=== PATIENT | male | born 1945 | race Caucasian/White ===

== ENCOUNTER 2017-06-18 20:17 | Inpatient (IN) | payer OTHER ==
[~2017-06-18] VITALS: Ht 175.3 cm; Wt 87.9 kg
[2017-06-18] VITALS (7 sets, daily range): BP systolic 70–119; BP diastolic 52–74; PULSE 96–109; RESP 18; TEMP 97.4; O2SAT 97–98
--- NOTE | 2017-06-18 20:56 | PD ---
HPI Chief Complaint: Abnormal Results Time Seen by Provider: 20:37 Travel History International Travel<30 days: No Contact w/Intl Traveler<30days: No History of Present Illness HPI Patient is a 72-year-old male who presents the emergency room with his family for evaluation of hypotension. As per patient's , patient had an episode of dizziness this afternoon, patient's did take his blood pressure and noted it to be 77/44, repeat blood pressure was 85/49. Patient denied a syncopal episode, denied any chest pain or shortness of breath. Denies fall or trauma to the head. Patient initially refused to come to the emergency room for evaluation of his hypotension. Patient reports that he has not eaten or drinking anything all day as he was not hungry. Reports that he feels fine and doesn't want to be here in the ER. Patient denies dizziness at this time, denies any vision changes, denies any nausea or vomiting. Patient with no complaints. Patient does have history of hypertension, he did take his antihypertensives this morning. PFSH Past Medical History High Cholesterol: Yes Hypertension: Yes Past Surgical History Surgical History: No Previous Surgery Social History Alcohol Use: No Tobacco Use: No Allergies-Medications (Allergen,Severity, Reaction): Coded Allergies: No Known Allergies (Unverified , 06/18/17) Reported Meds & Prescriptions Reported Meds & Active Scripts Active Reported Lisinopril 20 Mg Tab 20 Mg PO DAILY Atorvastatin (Atorvastatin Calcium) 40 Mg Tab 40 Mg PO DAILY Review of Systems General / Constitutional: No: Fever Eyes: No: Visual changes HENT: No: Headaches Cardiovascular: No: Chest Pain or Discomfort Respiratory: No: Shortness of Breath Gastrointestinal: No: Abdominal Pain Genitourinary: No: Dysuria Musculoskeletal: No: Pain Skin: No Rash Neurologic: Positive: Dizziness, No: Weakness Psychiatric: No: Depression Endocrine: No: Polydipsia Hematologic/Lymphatic: No: Easy Bruising Physical Exam Narrative GENERAL: Moderate distress SKIN: Focused skin assessment warm/dry. HEAD: Atraumatic. Normocephalic. EYES: Pupils equal and round. No scleral icterus. No injection or drainage. ENT: No nasal bleeding or discharge. Mucous membranes pink and moist. NECK: Trachea midline. No JVD. CARDIOVASCULAR: Regular rate and rhythm. No murmur appreciated. RESPIRATORY: No accessory muscle use. Clear to auscultation. Breath sounds equal bilaterally. GASTROINTESTINAL: Abdomen soft, non-tender, nondistended. Hepatic and splenic margins not palpable. MUSCULOSKELETAL: No obvious deformities. No clubbing. No cyanosis. No edema. NEUROLOGICAL: Awake and alert. No obvious cranial nerve deficits. Motor grossly within normal limits. Normal speech. PSYCHIATRIC: Appropriate mood and affect; insight and judgment normal. Data Data Last Documented VS Vital Signs Date Time Temp Pulse Resp B/P (MAP) Pulse Ox O2 Delivery O2 Flow Rate FiO2 06/18/17 22:30 98 21 06/18/17 22:19 103 18 119/74 (89) Room Air 06/18/17 20:28 97.4 Orders Orders Sepsis Workup Initiated (06/18/17 ) Electrocardiogram (06/18/17 20:48) Complete Blood Count With Diff (06/18/17 20:48) Comprehensive Metabolic Panel (06/18/17 20:48) Prothrombin Time / Inr (Pt) (06/18/17 20:48) Act Partial Throm Time (Ptt) (06/18/17 20:48) Lactic Acid Sepsis Protocol (06/18/17 20:48) Magnesium (Mg) (06/18/17 20:48) Ckmb (Isoenzyme) Profile (06/18/17 20:48) Troponin I (06/18/17 20:48) Urinalysis - C+S If Indicated (06/18/17 20:48) Blood Culture (06/18/17 20:48) Blood Glucose (06/18/17 20:48) Ecg Monitoring (06/18/17 20:48) Iv Access Insert/Monitor (06/18/17 20:48) Oximetry (06/18/17 20:48) Oxygen Administration (06/18/17 20:48) Ct Brain W/O Iv Contrast(Rout) (06/18/17 20:48) Sodium Chlor 0.9% 1000 Ml Inj (Ns 1000 M (06/18/17 21:00) Sodium Chlor 0.9% 1000 Ml Inj (Ns 1000 M (06/18/17 21:00) CKMB (06/18/17 20:51) CKMB% (06/18/17 20:51) Arterial Blood Gas (Abg) (06/18/17 ) Sepsis Workup Initiated (06/18/17 ) Vancomycin Inj (Vancomycin Inj) (06/18/17 21:44) Piperacil-Tazo 4.5 Gm Premix (Zosyn 4.5 (06/18/17 21:44) Chest, Single Ap (06/18/17 21:49) Sodium Chlor 0.9% 1000 Ml Inj (Ns 1000 M (06/18/17 22:00) Drug Screen, Random Urine (06/18/17 22:05) Salicylates (Aspirin) (06/18/17 22:05) Alcohol (Ethanol) (06/18/17 20:51) Cath For Specimen (06/18/17 22:30) Admit Order (Ed Use Only) (06/18/17 22:33) Labs Laboratory Tests Test 06/18/17 20:51 06/18/17 21:48 06/18/17 22:34 White Blood Count 9.1 TH/MM3 Red Blood Count 4.27 MIL/MM3 Hemoglobin 14.2 GM/DL Hematocrit 42.5 % Mean Corpuscular Volume 99.4 FL Mean Corpuscular Hemoglobin 33.2 PG Mean Corpuscular Hemoglobin Concent 33.4 % Red Cell Distribution Width 14.6 % Platelet Count 179 TH/MM3 Mean Platelet Volume 7.5 FL Neutrophils (%) (Auto) 85.6 % Lymphocytes (%) (Auto) 9.5 % Monocytes (%) (Auto) 3.9 % Eosinophils (%) (Auto) 0.2 % Basophils (%) (Auto) 0.8 % Neutrophils # (Auto) 7.7 TH/MM3 Lymphocytes # (Auto) 0.9 TH/MM3 Monocytes # (Auto) 0.4 TH/MM3 Eosinophils # (Auto) 0.0 TH/MM3 Basophils # (Auto) 0.1 TH/MM3 CBC Comment DIFF FINAL Differential Comment Prothrombin Time 10.4 SEC Prothromb Time International Ratio 1.0 RATIO Activated Partial Thromboplast Time 24.0 SEC Blood Urea Nitrogen 18 MG/DL Creatinine 1.70 MG/DL Random Glucose 74 MG/DL Total Protein 8.3 GM/DL Albumin 4.3 GM/DL Calcium Level 9.4 MG/DL Magnesium Level 1.5 MG/DL Alkaline Phosphatase 98 U/L Aspartate Amino Transf (AST/SGOT) 225 U/L Alanine Aminotransferase (ALT/SGPT) 138 U/L Total Bilirubin 0.7 MG/DL Sodium Level 135 MEQ/L Potassium Level 4.9 MEQ/L Chloride Level 96 MEQ/L Carbon Dioxide Level 19.9 MEQ/L Anion Gap 19 MEQ/L Estimat Glomerular Filtration Rate 40 ML/MIN Lactic Acid Level 8.2 mmol/L Total Creatine Kinase 103 U/L Creatine Kinase MB 1.1 NG/ML Troponin I LESS THAN 0.02 NG/ML Salicylates Level 2.1 MG/DL Ethyl Alcohol Level 156 MG/DL Blood Gas Puncture Site LT RADIAL Blood Gas Patient Temperature 98.6 Blood Gas HCO3 15 mmol/L Blood Gas Base Excess -10.1 mmol/L Blood Gas Oxygen Saturation 94 % Arterial Blood pH 7.30 Arterial Blood Partial Pressure CO2 31 mmHG Arterial Blood Partial Pressure O2 91 mmHG Arterial Blood Oxygen Content 16.6 Vol % Arterial Blood Carboxyhemoglobin 1.0 % Arterial Blood Methemoglobin 1.5 % Blood Gas Hemoglobin 12.6 G/DL Blood Gas Inspired Oxygen 21 % Urine Color YELLOW Urine Turbidity CLEAR Urine pH 5.5 Urine Specific [place] 1.020 Urine Protein NEG mg/dL Urine Glucose (UA) NEG mg/dL Urine Ketones 15 mg/dL Urine Occult Blood NEG Urine Nitrite NEG Urine Bilirubin NEG Urine Urobilinogen 0.2 MG/DL Urine Leukocyte Esterase NEG Urine RBC 0-2 /hpf Urine WBC 0-2 /hpf Urine Squamous Epithelial Cells 0-5 /hpf Urine Bacteria NONE /hpf Urine Hyaline Casts 3-5 /lpf Microscopic Urinalysis Comment CULT NOT INDICATED Urine Opiates Screen NEG Urine Barbiturates Screen NEG Urine Amphetamines Screen NEG Urine Benzodiazepines Screen NEG Urine Cocaine Screen NEG Urine Cannabinoids Screen NEG MDM Medical Decision Making Medical Screen Exam Complete: Yes Emergency Medical Condition: Yes Medical Record Reviewed: Yes Interpretation(s) EKG at 97BPM, qt/qtc: 347/402, no acute st or t wave changes Vital Signs Date Time Temp Pulse Resp B/P (MAP) Pulse Ox O2 Delivery O2 Flow Rate FiO2 06/18/17 20:28 97.4 109 18 93/55 (63) 47 Differential Diagnosis Arrhythmia, ACS, intracranial hemorrhage, CVA, sepsis Narrative Course Patient is a 72-year-old male who presents the emergency room tachycardic and hypotensive, patient with no complaints at this time. Patient's family report that patient complained of dizziness this afternoon and has been hypotensive all afternoon, reports that he has not been eating or drinking today as "I didn' t feel like it." Patient with no objective complaints at this time. During the course of the patients emergency department visit, the patients history, examination, and differential diagnosis were reviewed with the patient. The patient was placed on a cardiac specialist with oximetry and frequent blood pressure monitoring. The patient had an IV access obtained and blood work sent for analysis. The patient was initially provided IV fluids. The patients laboratory studies were reviewed and remarkable for: CBC & BMP Diagram 06/18/17 20:51 Total Protein 8.3 H, Albumin 4.3, Calcium Level 9.4, Magnesium Level 1.5, Alkaline Phosphatase 98, Aspartate Amino Transf (AST/SGOT) 225 H, Alanine Aminotransferase (ALT/SGPT) 138 H, Total Bilirubin 0.7 Radiology studies were reviewed and remarkable for Last Impressions Head CT 06/18/172047 Signed Impressions: Service Date/Time: Sunday, June 18, 2017 20:56 - CONCLUSION: 1. Senescent changes with mild to moderate small vessel ischemic white matter demyelination. 2. Right maxillary sinus fluid consistent with sinusitis. 3. No acute intracranial abnormality. Reuben Delgado MD Patient's AST/ALT are elevated, patient's son reports that Dr. Mann has been following with this as patient did drink a little too much alcohol in the past, he has since quit drinking and denies drinking today Patient with the anion gap metabolic acidosis, this could be secondary to his lactic acidosis. Lactate is 8.2, patient has been pancultured, 30 cc/kg IV fluids were ordered. Patient has been given Zosyn as well as vancomycin. Patient's BUN/CR is elevated - most likely due to dehydration as patient has not been drinking fluids today Patient will be admitted to the hospital for further workup. Patient reports that he feels fine at this time, patient with no complaints. Case reviewed with Dr. Martin who accepts pt to service. Dr. Martin request CTA to rule out PE be ordered, he will follow up with CTA results. Critical Care Narrative Aggregate critical care time was 30 minutes. Time to perform other separately billable procedures was not included in the critical care time. My time did not include minutes spent treating any other patients simultaneously or on activities that did not directly contribute to the patient's treatment. The services I provided to this patient were to treat and/or prevent clinically significant deterioration that could result in: , decompensation, deterioration I provided critical care services requiring my management, as noted below: Chart data review, documentation time, medication orders and management, vital sign assessments/reviewing monitor data, ordering and reviewing lab tests, ordering and interpreting/reviewing x-rays and diagnostic studies, care of the patient and discussion of the patient with the admitting physicians. Diagnosis Primary Impression: Sepsis Additional Impressions: Lactic acid acidosis Dehydration Transaminitis Admitting Information Admitting Physician Requests: Admit Bernadette Ivey DO Jun 18, 2017 20:56
[2017-06-18] MEDS ORDERED: SODIUM CHLOR 0.9% 1000 ML INJ 1,000 ML IV ONE ×3 (21:00→22:00)
--- NOTE | 2017-06-18 21:08 | RADRPT ---
EXAM DATE/TIME: 06/18/2017 20:56 [facility] COMPARISON: No previous studies available for comparison. INDICATIONS : Dizziness. RADIATION DOSE: 56.55 CTDIvol (mGy) MEDICAL HISTORY : Hypertension. SURGICAL HISTORY : None. ENCOUNTER: Initial ACUITY: 1 day PAIN SCALE: 0/10 LOCATION: cranial TECHNIQUE: Multiple contiguous axial images were obtained of the head. Using automated exposure control and adj ustment of the mA and/or kV according to patient size, radiation dose was kept as low as reasonably a chievable to obtain optimal diagnostic quality images. DICOM format image data is available electro nically for review and comparison. FINDINGS: CEREBRUM: Moderate diffuse cerebral volume loss. Mild to moderate periventricular white matter hypodensities. T he ventricles are normal for degree of atrophy. No evidence of midline shift, mass lesion, hemorrhag e or acute infarction. No extra-axial fluid collections are seen. POSTERIOR FOSSA: The cerebellum and brainstem are intact. The 4th ventricle is midline. The cerebellopontine angle i s unremarkable. EXTRACRANIAL: The visualized portion of the orbits is intact. Fluid is noted in the right maxillary sinus SKULL: The calvaria is intact. No evidence of skull fracture. CONCLUSION: 1. Senescent changes with mild to moderate small vessel ischemic white matter demyelination. 2. Right maxillary sinus fluid consistent with sinusitis. 3. No acute intracranial abnormality. Reuben Delgado MD on June 18, 2017 at 21:03 Board Certified Radiologist. This report was verified electronically.
[2017-06-18 21:22] LABS: AUTOMATED NEUTROPHIL # 7.7 TH/MM3 (1.8-7.7); BASOPHIL # 0.1 TH/MM3 (0-0.2); BASOPHIL % 0.8 % (0.0-2.0); EOSINOPHIL % 0.2 % (0.0-4.0); HEMATOCRIT 42.5 % (39.0-51.0); HEMOGLOBIN 14.2 GM/DL (13.0-17.0); LYMPH % 9.5 % (9.0-44.0); LYMPHOCYTE # 0.9 TH/MM3 (1.0-4.8); MEAN CELL VOLUME 99.4 FL (80.0-100.0); MEAN CORPUSCULAR HEMOGLOBIN 33.2 PG (27.0-34.0); MEAN CORPUSCULAR HGB CONC 33.4 % (32.0-36.0); MEAN PLATELET VOLUME 7.5 FL (7.0-11.0); MONO % 3.9 % (0.0-8.0); MONOCYTE # 0.4 TH/MM3 (0-0.9); NEUT % 85.6 % (16.0-70.0); PLATELET COUNT 179 TH/MM3 (150-450); RED BLOOD COUNT 4.27 MIL/MM3 (4.50-5.90); RED CELL DISTRIBUTION WIDTH 14.6 % (11.6-17.2); WHITE BLOOD COUNT 9.1 TH/MM3 (4.0-11.0)
[2017-06-18 21:31] LABS: CHLORIDE 96 MEQ/L (98-107); SODIUM (NA) 135 MEQ/L (136-145)
[2017-06-18 21:34] LABS: ALBUMIN 4.3 GM/DL (3.4-5.0); BICARBONATE 19.9 MEQ/L (21.0-32.0); CALCIUM 9.4 MG/DL (8.5-10.1); GLUCOSE,RANDOM 74 MG/DL (74-106); MAGNESIUM 1.5 MG/DL (1.5-2.5)
[2017-06-18 21:35] LABS: BLOOD UREA NITROGEN 18 MG/DL (7-18)
[2017-06-18 21:36] LABS: PROTHROMBIN TIME - PATIENT 10.4 SEC (9.8-11.6)
[2017-06-18] MEDS ORDERED: ATOR40TA16 PO (21:36)
[2017-06-18] MEDS ORDERED: LISI-515 PO (21:36)
[2017-06-18 21:37] LABS: ALT (GPT) 138 U/L (12-78)
[2017-06-18 21:38] LABS: AST (GOT) 225 U/L (15-37); GLOMERULAR FILTRATION RATE 40 ML/MIN (>89)
[2017-06-18 21:39] LABS: TOTAL BILIRUBIN ADULT 0.7 MG/DL (0.2-1.0); TOTAL PROTEIN 8.3 GM/DL (6.4-8.2)
[2017-06-18 21:40] LABS: ALKALINE PHOSPHATASE 98 U/L (45-117)
[2017-06-18 21:43] LABS: TROPONIN I LESS THAN 0.02 NG/ML (0.02-0.05)
[2017-06-18 21:44] LABS: LACTIC ACID SEPSIS PROTOCOL 8.2 mmol/L (0.4-2.0)
[2017-06-18] MEDS ORDERED: PIPERACIL-TAZO 4.5 GM PREMIX 100 ML IV STA (21:44)
[2017-06-18] MEDS ORDERED: VANCOMYCIN INJ 1,000 MG in SODIUM CHLOR 0.9% 250 ML INJ 250 ML IV STA (21:44)
--- NOTE | 2017-06-18 22:11 | RADRPT ---
EXAM DATE/TIME: 06/18/2017 21:53 [facility] COMPARISON: No previous studies available for comparison. INDICATIONS : Dizziness. MEDICAL HISTORY : Hypertension. SURGICAL HISTORY : None. ENCOUNTER: Initial ACUITY: 1 day PAIN SCORE: 0/10 LOCATION: Bilateral chest FINDINGS: A single view of the chest demonstrates the lungs to be symmetrically aerated without evidence of mas s, infiltrate or effusion. The cardiomediastinal contours are unremarkable. Osseous structures are intact. CONCLUSION: 1. No acute cardiopulmonary disease. Reuben Delgado MD on June 18, 2017 at 22:08 Board Certified Radiologist. This report was verified electronically.
[2017-06-18 22:43] LABS: BILIRUBIN, URINE NEG (NEG); BLOOD, URINE NEG (NEG); GLUCOSE,URINE NEG (NEG); KETONE, URINE 15 mg/dL (NEG); NITRITE,URINE NEG (NEG); PH, URINE 5.5 (5.0-8.5); URINE COLOR YELLOW (YELLW/STRAW); URINE LEUKOCYTE ESTERASE NEG (NEG)
[2017-06-18] MEDS ORDERED: CHLORHEXIDINE GLUCONATE 2 % 1 PACK (2 CLOTHS) TOP PRN (22:45)
[2017-06-18] MEDS ORDERED: RESP: ALBUTEROL 2.5 MG/IPRATROPIUM 0.5 MG NEB (PRN) INH (22:45)
[2017-06-18] MEDS ORDERED: NURSING INFORMATION XX SCH (22:45)
[2017-06-18] MEDS ORDERED: SODIUM CHLORIDE 0.9% FLUSH 10 ML FLUSH IV FLUSH PRN (22:45)
[2017-06-18 22:47] LABS: RBC, URINE 0-2 /hpf (0-3); WBC, URINE 0-2 /hpf (0-5)
[2017-06-18 22:48] LABS: SQUAMOUS EPITHELIAL CELL URINE 0-5 /hpf (0-5)
[2017-06-19] VITALS (15 sets, daily range): BP systolic 116–149; BP diastolic 65–83; PULSE 71–118; RESP 16–20; TEMP 96.9–99.3; O2SAT 90–99
[2017-06-19] MEDS ORDERED: DIATRIZOATE MEGLUM/DIATRIZOATE SOD 9 ML CUP ONE (00:11)
[2017-06-19] MEDS ORDERED: ONDANSETRON HCL 4 MG/2 ML VIAL IV ONE (00:30)
[2017-06-19] MEDS ORDERED: ONDANSETRON HCL 4 MG/2 ML VIAL IV PUSH PRN (00:45)
[2017-06-19] MEDS ORDERED: IODIXANOL 320 MG/ML 10 ML VIAL (for Rad CT) IVCONTRAST ONE (02:17)
--- NOTE | 2017-06-19 02:35 | RADRPT ---
EXAM DATE/TIME: 06/19/2017 01:52 [facility] COMPARISON: No previous studies available for comparison. INDICATIONS : Evaluate for embolism. IV CONTRAST: 50 cc Visipaque (iodixanol) IV ; Cumulative dose for multiple exams. RADIATION DOSE: 18.98 CTDIvol (mGy) MEDICAL HISTORY : Hypertension. SURGICAL HISTORY : None. ENCOUNTER: Initial ACUITY: 1 day PAIN SCALE: 0/10 LOCATION: chest TECHNIQUE: Volumetric scanning of the chest was performed using a pulmonary embolism protocol MIP images were re constructed. Using automated exposure control and adjustment of the mA and/or kV according to patien t size, radiation dose was kept as low as reasonably achievable to obtain optimal diagnostic quality images. DICOM format image data is available electronically for review and comparison. Follow-up recommendations for detected pulmonary nodules are based at a minimum on nodule size and pa tient risk factors according to Fleischner Society Guidelines. FINDINGS: PULMONARY ARTERIES: Poor contrast bolus as most of the contrast within the aorta. No large central pulmonary emboli, stern annette. LUNGS: There is no consolidation or pneumothorax . No concerning pulmonary nodule is visualized. PLEURAE: There is no pleural thickening or pleural effusion. MEDIASTINUM: There is good visualization of the great vessels of the middle mediastinum. No evidence of mediastin al or hilar adenopathy/mass. MUSCULOSKELETAL: Within normal limits for patient age. MISCELLANEOUS: The visualized upper abdominal organs demonstrate no acute abnormality. Diffusely diminished attenuat ion characteristic of fatty infiltration. Small hiatal hernia CONCLUSION: 1. Limited opacification of the pulmonary arterie. The contrast bolus is predominantly in the aorta. No large central pulmonary emboli. 2. Lungs are clear. 3. Small hiatal hernia. Hepatic fatty infiltration. Viet Singer MD on June 19, 2017 at 2:31 Board Certified Radiologist. This report was verified electronically.
--- NOTE | 2017-06-19 02:48 | RADRPT ---
EXAM DATE/TIME: 06/19/2017 01:52 [facility] COMPARISON: No previous studies available for comparison. INDICATIONS : Elevated liver function test. IV CONTRAST: 50 cc Visipaque (iodixanol) IV ; Cumulative dose for multiple exams. ORAL CONTRAST: Prescribed oral contrast ingested. RADIATION DOSE: 20.14 CTDIvol (mGy) MEDICAL HISTORY : Hypertension. SURGICAL HISTORY : None. ENCOUNTER: Initial ACUITY: 1 day PAIN SCALE: 0/10 LOCATION: abdomen and pelvis TECHNIQUE: Volumetric scanning of the abdomen and pelvis was performed. Using automated exposure control and ad justment of the mA and/or kV according to patient size, radiation dose was kept as low as reasonably achievable to obtain optimal diagnostic quality images. DICOM format image data is available electro nically for review and comparison. FINDINGS: LOWER LUNGS: The visualized lower lungs are clear. Small hiatal hernia. LIVER: Homogeneous, decreased density without lesion. There is no dilation of the biliary tree. No calcifi ed gallstones. SPLEEN: Normal size without lesion. PANCREAS: Within normal limits. KIDNEYS: 1.9 cm cortical nodule laterally along the inferior aspect of the left kidney has Hounsfield measurem ents of 30 and cannot be classified as a simple cyst. Kidneys are otherwise radiographically normal. ADRENAL GLANDS: Within normal limits. VASCULAR: There is no aortic aneurysm. BOWEL/MESENTERY: Some diverticular disease in the sigmoid colon without diverticulitis. ABDOMINAL WALL: Within normal limits. RETROPERITONEUM: There is no lymphadenopathy. BLADDER: No wall thickening or mass. REPRODUCTIVE: Within normal limits. INGUINAL: There is no lymphadenopathy or hernia. MUSCULOSKELETAL: Pars fractures at L5. Otherwise intact. CONCLUSION: 1. Diffuse hepatic fatty infiltration. Small hiatal hernia. 2. 1.9 cm nodule in the inferior lateral pole of left kidney cannot be characterized as a simple cyst . This could still represent hemorrhagic or proteinaceous cyst. Ultrasound could be performed for fur ther characterization on a nonemergent basis. 3. Disease of the sigmoid without diverticulitis. Viet Singer MD on June 19, 2017 at 2:38 Board Certified Radiologist. This report was verified electronically.
[2017-06-19] MEDS: CHLORHEXIDINE GLUCONATE 2 % 1 PACK (2 CLOTHS) TOP SCH (04:00)
[2017-06-19] MEDS: PIPERACIL-TAZO 4.5 GM PREMIX 100 ML IV SCH ×2 (04:00→05:19)
[2017-06-19 05:34] LABS: AUTOMATED NEUTROPHIL # 4.7 TH/MM3 (1.8-7.7); BASOPHIL # 0.3 TH/MM3 (0-0.2); BASOPHIL % 4.2 % (0.0-2.0); EOSINOPHIL % 0.2 % (0.0-4.0); HEMOGLOBIN 11.6 GM/DL (13.0-17.0); LYMPHOCYTE # 0.9 TH/MM3 (1.0-4.8); MEAN CELL VOLUME 98.7 FL (80.0-100.0); MEAN CORPUSCULAR HEMOGLOBIN 32.5 PG (27.0-34.0); MEAN PLATELET VOLUME 7.1 FL (7.0-11.0); MONO % 5.8 % (0.0-8.0); MONOCYTE # 0.4 TH/MM3 (0-0.9); NEUT % 74.8 % (16.0-70.0); PLATELET COUNT 140 TH/MM3 (150-450); RED BLOOD COUNT 3.55 MIL/MM3 (4.50-5.90); RED CELL DISTRIBUTION WIDTH 14.5 % (11.6-17.2); WHITE BLOOD COUNT 6.3 TH/MM3 (4.0-11.0)
[2017-06-19 05:42] LABS: CHLORIDE 102 MEQ/L (98-107); SODIUM (NA) 135 MEQ/L (136-145)
[2017-06-19 05:54] LABS: ALBUMIN 3.1 GM/DL (3.4-5.0); ALKALINE PHOSPHATASE 67 U/L (45-117); ALT (GPT) 91 U/L (12-78); AST (GOT) 120 U/L (15-37); BICARBONATE 22.2 MEQ/L (21.0-32.0); BLOOD UREA NITROGEN 17 MG/DL (7-18); CALCIUM 7.5 MG/DL (8.5-10.1); GLOMERULAR FILTRATION RATE 66 ML/MIN (>89); GLUCOSE,RANDOM 96 MG/DL (74-106); TOTAL BILIRUBIN ADULT 0.7 MG/DL (0.2-1.0); TOTAL PROTEIN 6.1 GM/DL (6.4-8.2)
--- NOTE | 2017-06-19 06:33 | RADRPT ---
EXAM DATE/TIME: 06/19/2017 05:59 [facility] COMPARISON: CHEST SINGLE AP, June 18, 2017, 21:53. INDICATIONS : Shortness of breath, possible pulmonary disease. MEDICAL HISTORY : Hypertension. SURGICAL HISTORY : None. ENCOUNTER: Subsequent ACUITY: 1 day PAIN SCORE: Non-responsive. LOCATION: Bilateral chest FINDINGS: A single view of the chest demonstrates the lungs to be symmetrically aerated without evidence of mas s, infiltrate or effusion. The cardiomediastinal contours are unremarkable. Osseous structures are intact. CONCLUSION: No acute cardiopulmonary process. No change from prior. Viet Singer MD on June 19, 2017 at 6:30 Board Certified Radiologist. This report was verified electronically.
--- NOTE | 2017-06-19 06:52 | HHI.HP ---
[facility] Critical Care Medicine Primary Care Physician Pepe Mann MD, PhD Admission Diagnosis Lactic acidosis, sepsis Diagnosis: Chief Complaint: fatigue Travel History International Travel<30 Days: No Contact w/Intl Traveler <30 Da: No Traveled to Known Affected Are: No History of Present Illness This is a 72yM with history of HTN and HLD who presented with fatigue. he states he felt weak and then fell, no LOC, did not hit his head. does endorse only eating a piece of turkey gonzalez and cheese all day yesterday. has not had much to drink either. denies any fever, chills, chest pain, sob, cough, sick contacts, abd pain, n/v/c/d, or any other symptoms. has been in his usual state of health. does endorse drinking 1 beer and 1 scotch daily, but he denies having anything to drink yesterday at all. In the ER, he was hypotensive, tachycardic and received 3L crystalloid ivf. lab evidence concerning for Cr 1.7 , lactate 8, AST/ALT mildly elevated, but with normal wbc count. afebrile. etoh level was elevated at 156 despite patient subjective history of denying etoh. urinalysis + for ketones. I discussed the case with his son who is the head of MRI at this institution, and he states that his father has had at least 1 other episode of heavy drinking with severe intoxication recently, and he was decreasing his amount of drinking. Critical care medicine was consulted to evaluate his shock state and multi-organ system dysfunction Review of Systems Constitutional: DENIES: Diaphoretic episodes, Fatigue, Fever, Weight loss, Chills, Dizziness, Night Sweats Endocrine: DENIES: Heat/cold intolerance, Polyuria Eyes: DENIES: Blurred vision, Photosensitivity Respiratory: DENIES: Cough, Wheezing, Hemoptysis, Sputum production, Shortness of breath Cardiovascular: DENIES: Chest pain, Palpitations, Syncope, Dyspnea on Exertion , Lower Extremity Edema, Orthopnea Gastrointestinal: DENIES: Abdominal pain, Bloody stools, Constipation, Diarrhea , Nausea, Vomiting Genitourinary: DENIES: Dysuria Musculoskeletal: DENIES: Back pain, Neck pain Neurologic: DENIES: Abnormal gait, Headache, Localized weakness, Paresthesias, Seizures, Speech Problems, Tremor, Poor Balance Psychiatric: DENIES: Anxiety, Confusion, Depression Past Family Social History Allergies: Coded Allergies: No Known Allergies (Unverified , 06/18/17) Past Medical History hypertension hyperlipidemia last time he was at the hospital for an acute illness was 1965. Past Surgical History none. Reported Medications Lisinopril 20 Mg Tab 20 Mg PO DAILY Atorvastatin (Atorvastatin Calcium) 40 Mg Tab 40 Mg PO DAILY Active Ordered Medications See MAR Family History reviewed and found to be noncontributory to his acute illness Social History remote prior smoker for a few years in college. endorses drinking 1 beer and 1 scotch per day. denies other drugs. Physical Exam Vital Signs Vital Signs Date Time Temp Pulse Resp B/P (MAP) Pulse Ox O2 Delivery O2 Flow Rate FiO2 06/19/17 06:02 97 18 125/71 (89) 94 Room Air 06/19/17 05:39 95 18 94 Room Air 06/19/17 05:26 99.3 98 18 132/78 (96) 93 Room Air 06/19/17 04:19 92 16 149/75 (99) 95 Nasal Cannula 2.00 06/19/17 03:09 92 18 147/79 (101) 99 Nasal Cannula 2.00 06/19/17 01:00 118 18 118/71 (87) 95 Nasal Cannula 2.00 06/19/17 00:03 18 95 Nasal Cannula 2.00 06/19/17 00:01 95 Nasal Cannula 2.00 06/19/17 00:00 98 18 144/65 (91) 90 Room Air 06/18/17 22:30 98 21 06/18/17 22:19 103 18 119/74 (89) 98 Room Air 06/18/17 21:22 98 Room Air 06/18/17 21:22 98 Room Air 06/18/17 20:50 18 98 Room Air 06/18/17 20:47 96 18 99/55 (70) 98 Room Air 06/18/17 20:45 96 18 70/52 (58) 97 Room Air 06/18/17 20:44 102 18 78/55 (63) 97 Room Air 06/18/17 20:28 97.4 109 18 93/55 (68) 98 Physical Exam gen: elderly male, sitting in bed, no acute distress heent: nc. at. perrl. mucous membranes are moist after fluid resuscitation. neck: no jvd. trachea midline. chest: unlabored. equal chest rise. room air. cv: normal rate, regular rhythm. sinus. abd: soft, nontender, nondistended. no guarding. no hepatomegaly palpated. extr: skin turgor still poor, but extremities are now warm and well perfused. distal pulses 2+. no clubbing or cyanosis. neuro: RASS -1. slow to answer questions. follows commands x 4. CN 2-12 grossly intact. no focal deficits. Laboratory Laboratory Tests Test 06/18/17 20:51 06/18/17 21:48 06/18/17 22:34 06/18/17 23:32 White Blood Count 9.1 Red Blood Count 4.27 Hemoglobin 14.2 Hematocrit 42.5 Mean Corpuscular Volume 99.4 Mean Corpuscular Hemoglobin 33.2 Mean Corpuscular Hemoglobin Concent 33.4 Red Cell Distribution Width 14.6 Platelet Count 179 Mean Platelet Volume 7.5 Neutrophils (%) (Auto) 85.6 Lymphocytes (%) (Auto) 9.5 Monocytes (%) (Auto) 3.9 Eosinophils (%) (Auto) 0.2 Basophils (%) (Auto) 0.8 Neutrophils # (Auto) 7.7 Lymphocytes # (Auto) 0.9 Monocytes # (Auto) 0.4 Eosinophils # (Auto) 0.0 Basophils # (Auto) 0.1 CBC Comment DIFF FINAL Differential Comment Prothrombin Time 10.4 Prothromb Time International Ratio 1.0 Activated Partial Thromboplast Time 24.0 Blood Urea Nitrogen 18 Creatinine 1.70 Random Glucose 74 Total Protein 8.3 Albumin 4.3 Calcium Level 9.4 Magnesium Level 1.5 Alkaline Phosphatase 98 Aspartate Amino Transf (AST/SGOT) 225 Alanine Aminotransferase (ALT/SGPT) 138 Total Bilirubin 0.7 Sodium Level 135 Potassium Level 4.9 Chloride Level 96 Carbon Dioxide Level 19.9 Anion Gap 19 Estimat Glomerular Filtration Rate 40 Lactic Acid Level 8.2 6.3 Total Creatine Kinase 103 Creatine Kinase MB 1.1 Troponin I LESS THAN 0.02 Salicylates Level 2.1 Ethyl Alcohol Level 156 Blood Gas Puncture Site LT RADIAL Blood Gas Patient Temperature 98.6 Blood Gas HCO3 15 Blood Gas Base Excess -10.1 Blood Gas Oxygen Saturation 94 Arterial Blood pH 7.30 Arterial Blood Partial Pressure CO2 31 Arterial Blood Partial Pressure O2 91 Arterial Blood Oxygen Content 16.6 Arterial Blood Carboxyhemoglobin 1.0 Arterial Blood Methemoglobin 1.5 Blood Gas Hemoglobin 12.6 Blood Gas Inspired Oxygen 21 Urine Color YELLOW Urine Turbidity CLEAR Urine pH 5.5 Urine Specific Welling 1.020 Urine Protein NEG Urine Glucose (UA) NEG Urine Ketones 15 Urine Occult Blood NEG Urine Nitrite NEG Urine Bilirubin NEG Urine Urobilinogen 0.2 Urine Leukocyte Esterase NEG Urine RBC 0-2 Urine WBC 0-2 Urine Squamous Epithelial Cells 0-5 Urine Bacteria NONE Urine Hyaline Casts 3-5 Microscopic Urinalysis Comment CULT NOT INDICATED Urine Opiates Screen NEG Urine Barbiturates Screen NEG Urine Amphetamines Screen NEG Urine Benzodiazepines Screen NEG Urine Cocaine Screen NEG Urine Cannabinoids Screen NEG Test 06/19/17 05:23 White Blood Count 6.3 Red Blood Count 3.55 Hemoglobin 11.6 Hematocrit 35.0 Mean Corpuscular Volume 98.7 Mean Corpuscular Hemoglobin 32.5 Mean Corpuscular Hemoglobin Concent 33.0 Red Cell Distribution Width 14.5 Platelet Count 140 Mean Platelet Volume 7.1 Neutrophils (%) (Auto) 74.8 Lymphocytes (%) (Auto) 15.0 Monocytes (%) (Auto) 5.8 Eosinophils (%) (Auto) 0.2 Basophils (%) (Auto) 4.2 Neutrophils # (Auto) 4.7 Lymphocytes # (Auto) 0.9 Monocytes # (Auto) 0.4 Eosinophils # (Auto) 0.0 Basophils # (Auto) 0.3 CBC Comment DIFF FINAL Differential Comment Blood Urea Nitrogen 17 Creatinine 1.10 Random Glucose 96 Total Protein 6.1 Albumin 3.1 Calcium Level 7.5 Alkaline Phosphatase 67 Aspartate Amino Transf (AST/SGOT) 120 Alanine Aminotransferase (ALT/SGPT) 91 Total Bilirubin 0.7 Sodium Level 135 Potassium Level 4.1 Chloride Level 102 Carbon Dioxide Level 22.2 Anion Gap 11 Estimat Glomerular Filtration Rate 66 Date/Time Source Procedure Growth Status 06/18/17 20:56 Blood Peripheral Aerobic Blood Culture Pending Received 06/18/17 20:56 Blood Peripheral Anaerobic Blood Culture Pending Received Result Diagram: 06/19/17 0523 06/19/[address] Angiography 06/19/17 0001 Signed Impressions: Service Date/Time: Monday, June 19, 2017 01:52 - CONCLUSION: 1. Limited opacification of the pulmonary arterie. The contrast bolus is predominantly in the aorta. No large central pulmonary emboli. 2. Lungs are clear. 3. Small hiatal hernia. Hepatic fatty infiltration. Viet Singer MD Abdomen/Pelvis CT 06/19/17 0001 Signed Impressions: Service Date/Time: Monday, June 19, 2017 01:52 - CONCLUSION: 1. Diffuse hepatic fatty infiltration. Small hiatal hernia. 2. 1.9 cm nodule in the inferior lateral pole of left kidney cannot be characterized as a simple cyst. This could still represent hemorrhagic or proteinaceous cyst. Ultrasound could be performed for further characterization on a nonemergent basis. 3. Disease of the sigmoid without diverticulitis. Viet Singer MD Chest X-Ray [id number] Signed Impressions: Service Date/Time: Sunday, June 18, 2017 21:53 - CONCLUSION: 1. No acute cardiopulmonary disease. Reuben Delgado MD Head CT [id number] Signed Impressions: Service Date/Time: Sunday, June 18, 2017 20:56 - CONCLUSION: 1. Senescent changes with mild to moderate small vessel ischemic white matter demyelination. 2. Right maxillary sinus fluid consistent with sinusitis. 3. No acute intracranial abnormality. Reuben Delgado MD Septic Shock Reassessment Septic shock perfusion: reassessment completed Caprini VTE Risk Assessment Caprini VTE Risk Assessment: Mod/High Risk (score >= 2) Caprini Risk Assessment Model Point Value = 1 Point Value = 2 Point Value = 3 Point Value = 5 Age 41-60 Minor surgery BMI > 25 kg/m2 Swollen legs Varicose veins or History of unexplained or recurrent spontaneous Oral contraceptives or hormone replacement Sepsis (< 1 month) Serious lung disease, including pneumonia (< 1 month) Abnormal pulmonary function Acute myocardial infarction Congestive heart failure (< 1 month) History of inflammatory bowel disease Medical patient at bed rest Age 61-74 Arthroscopic surgery Major open surgery (> 45 min) Laparoscopic surgery (> 45 min) Malignancy Confined to bed (> 72 hours) Immobilizing plaster cast Central venous access Age >= 75 History of VTE Family history of VTE Factor V Leiden Prothrombin [id number] Lupus anticoagulant Anticardiolipin antibodies Elevated serum homocysteine Heparin-induced thrombocytopenia Other congenital or acquired thrombophilia Stroke (< 1 month) Elective arthroplasty Hip, pelvis, or leg fracture Acute spinal cord injury (< 1 month) Prophylaxis Regimen Total Risk Factor Score Risk Level Prophylaxis Regimen 0-1 Low Early ambulation 2 Moderate Order ONE of the following: *Sequential Compression Device (SCD) *Heparin 5000 units SQ BID 3-4 Higher Order ONE of the following medications: *Heparin 5000 units SQ TID *Enoxaparin/Lovenox 40 mg SQ daily (WT < 150 kg, CrCl > 30 mL/min) *Enoxaparin/Lovenox 30 mg SQ daily (WT < 150 kg, CrCl > 10-29 mL/min) *Enoxaparin/Lovenox 30 mg SQ BID (WT < 150 kg, CrCl > 30 mL/min) AND/OR *Sequential Compression Device (SCD) 5 or more Highest Order ONE of the following medications: *Heparin 5000 units SQ TID (Preferred with Epidurals) *Enoxaparin/Lovenox 40 mg SQ daily (WT < 150 kg, CrCl > 30 mL/min) *Enoxaparin/Lovenox 30 mg SQ daily (WT < 150 kg, CrCl > 10-29 mL/min) *Enoxaparin/Lovenox 30 mg SQ BID (WT < 150 kg, CrCl > 30 mL/min) AND *Sequential Compression Device (SCD) Assessment and Plan Assessment and Plan Assessment: 72yM with severe dehydration and alcoholic ketoacidosis with associated acute kidney injury and hypovolemic shock with severely elevated lactate. Clinically improving. long discussion with son today that he will need additional outpatient help for alcohol abuse. Per son, this is the second time he has been severely intoxicated. Will trend lactates and fluid hydrate. will complete liver work-up. Per son, has had liver ultrasound within the last month , so we will not repeat. will get renal ultrasound to better evaluate cyst on left kidney. Admit to floor level care. consult hospitalists to assume care. Highly complex with multiorgan system dysfunction that is improving but still persistent. Toxic Encephalopathy- resolving. Alcohol intoxication Alcohol abuse Severe intravascular volume depletion Hypovolemic shock- resolving Severe dehydration Alcoholic Ketoacidosis Lactic Acidosis Acute kidney injury left renal cyst Plan: - LR mivf at 100cc/hr - strict i/o's - hepatitis panel - check ammonia - check thiamine level and treat presumptively with iv thiamine and mvi - watch for etoh withdraw - trend lactates - renal ultrasound to better evaluate left renal cyst. - no need to obtain liver ultrasound given recent one within last month as outpatient. - no clinical concern for cardiogenic source: will cancel 2d echo. - admit to floor. consult hospitalist group to assume care. Camacho Ann MD Jun 19, 2017 06:52
[2017-06-19] MEDS: LACTATED RINGER'S 1000 ML INJ 1,000 ML IV SCH ×2 (07:04→19:17)
[2017-06-19] MEDS ORDERED: MULTIVITAMIN INJ 10 ML, THIAMINE INJ 100 MG, FOLIC ACID INJ 1 MG in SODIUM CHLOR 0.45% ... IV ONE (08:00)
[2017-06-19 09:29] LABS: ACETAMINOPHEN LESS THAN 2.0 MCG/ML (10.0-30.0)
--- NOTE | 2017-06-19 09:35 | RADRPT ---
EXAM DATE/TIME: 06/19/2017 07:46 [facility] COMPARISON: CT ABDOMEN & PELVIS W CONTRAST, June 19, 2017, 1:52. INDICATIONS : Increased BUN/Creatinine. Abnormal CT. MEDICAL HISTORY : Hypercholesterolemia. Hypertension. SURGICAL HISTORY : Eye surgery. ENCOUNTER: Initial ACUITY: 1 day PAIN SCORE: 0/10 LOCATION: Bilateral flank MEASUREMENTS: RIGHT KIDNEY: 10.4 x 4.6 x 5.1 cm LEFT KIDNEY: 10.6 x 6.4 x 5.4 cm FINDINGS: RIGHT KIDNEY: Renal cortex is normal in thickness and echotexture. No hydronephrosis, stone, or mass. LEFT KIDNEY: Examination was performed to characterize a low density bilobed exophytic lesion arising from the lat eral lower pole of the left kidney on recent CT. There is an oval smooth margin non-shadowing hypoec hoic lesion which does demonstrate some through transmission exophytic from the lower pole measuring 3.3 x 1.7 x 2.8 cm, correlating with the CT finding postop there is some layering echogenic material within it suggesting debris. No flow seen by color Doppler. No evidence hydronephrosis. No additio nal renal lesions seen. BLADDER: Smooth margins. No filling defects. CONCLUSION: A 3 cm exophytic lesion arising from the lower pole of left kidney a recent CT scan has predominantly cystic characteristics on ultrasound. There is some internal layering debris. Recommend followup e xam in 6 months. Luis Mcleod MD on June 19, 2017 at 9:25 Board Certified Radiologist. This report was verified electronically.
[2017-06-19] MEDS: SODIUM CHLORIDE 0.9% FLUSH 10 ML FLUSH IV FLUSH SCH ×2 (09:50→21:21)
[2017-06-19] MEDS: MULTIVITAMIN TAB PO SCH (09:50)
[2017-06-19] MEDS: ENOXAPARIN SODIUM 40 MG/0.4 ML SYRINGE SQ SCH (12:58)
--- NOTE | 2017-06-19 17:20 | MB ---
cc: Tuyet Vasquez MD DATE: 06/19/2017 REQUESTING PHYSICIAN: Dr. Ayala REASON FOR CONSULTATION: Transfer of care. HISTORY OF PRESENT ILLNESS: Mr. Hawthorne is a 72-year-old gentleman who was brought to the emergency room yesterday by his family after having episodes of lightheadedness, hypotension and weakness. The history is obtained from the chart, the patient and his , who was in the room with him. Apparently, the patient's was gone for the weekend. He states he spent the weekend alone. On Monday before his came back, he says he was out in the yard spreading a Amdro in the afternoon. He said he was there for several hours. He did not drink a lot of water. He did come into the house and have a small glass afterwards of water. He does admit to perhaps sweating. His then got home later in the day. He went out to help her with the groceries and actually was feeling weak and had to sit down between 2 of the trips secondary to the weakness. She says that she left him alone in the kitchen and when she came back, she found him on the ground at that point in a sitting position. He denies any loss of consciousness, but he does not recall how he fell. She started giving him glasses of water and checked his blood pressure. His blood pressure was low at the time and by the third glass of water she just became concerned and brought him to the emergency room. In the emergency room, he was hypotensive with a fast heart rate and received volume resuscitation. Lab work that was done showed a creatinine of 1.7, lactic acid of 2.7, beta hydroxybutyrate of 2.95 and an ethyl alcohol level of 156. The patient was admitted by the hydrochloric acid operator and stabilized overnight. The working diagnosis has been alcoholic ketoacidosis with acute kidney injury and hypovolemia. The patient denies any actual extensive alcohol consumption, even though he does say that he drinks 1 beer and a scotch a day, if he only has 2 drinks a day, he will have 2 scotches. However, he denies having any alcohol on Monday on the night that he came to the hospital. He does admit, on a little bit of pressing, that he did drink on Monday; he had several drinks at that time. According to his , last year he had elevated liver enzymes and at that point he cut back on his drinking and has not been drinking as much. The patient continues to deny any alcohol consumption on Monday. PAST MEDICAL HISTORY: Significant for hypertension and hyperlipidemia. PAST SURGICAL HISTORY: He denies any surgeries. ALLERGIES: HE DENIES. MEDICATIONS: 1. Atorvastatin, 40 mg. 2. Lisinopril, 20 mg. SOCIAL HISTORY: Habits: He stated he does not smoke. He said that in college he smoked a pipe. In terms of alcohol, he only admits to 2 drinks a day as stated, either a scotch and a beer or 2 beers. Social: He is . He and his will have been for 49 years this month. He tells me he is originally from [place]. 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 REVIEW OF SYSTEMS: He denies any fevers or chills. He denies any recent illness. He does say that he has had some sinus problems and was using Flonase. He noticed that last week his eyes are beginning to get a little bit injected and a little bit watery. He has had no cough or shortness of breath. No chest pain, no palpitations, no abdominal pain, no diarrhea or constipation. He tells me he has been urinating well. His does feel that he has been a little bit more forgetful over the last 3 or 4 months. She is not able to tell if he is not quite listening to her. He also tells me that he has had a tremor on and off for a couple of years now which is worse when he is tired. PHYSICAL EXAMINATION: VITAL SIGNS: Temperature 98, pulse is 89, respirations 20, blood pressure is 145/77, pulse oximetry is 97%. GENERAL: He is lying in the bed when I came in to see him. He does not appear to be in acute distress, a little bit tense-appearing. HEENT: Normocephalic, atraumatic. EOM is intact. His eyes are a little bit watery. He does have clear moist oral mucosa. NECK: Supple. LUNGS: Clear to auscultation bilaterally. No rhonchi, rales or wheezes. HEART: Regular. He is not tachycardic. ABDOMEN: Good bowel sounds in all 4 quadrants. No rebound or guarding. EXTREMITIES: No clubbing or cyanosis. He has no edema. He has some superficial capillaries around his ankles. His feet feel a little bit cool to touch. He has a little bit of an intention tremor and a slight bit of cogwheeling on exam. LABORATORY DATA: The lab work that has been done today showed a white count of 6.3, hemoglobin 11.6, hematocrit of 35, platelet count of 140. Blood gas when he came in showed a bicarbonate of 15, base excess of -10, pH was 7.3, pCO2 was 31, pO2 was 91, carboxyhemoglobin was 1; this was on room air. Sodium is now 135 with a potassium of 4.1, BUN was 17 with a creatinine of 1.1. This is already an improvement in GFR from 40-66. His random glucose is 90. His lactic acid is already 2.7,;it was 8.2 when he came in. Magnesium was 1.5 when he came in. AST was 120 with an ALT of 91; it was 225 and 138 when he came in. Ammonia level was 19. CK was 103 with an MB of 1.1. Troponin was less than 0.02. IMAGING STUDIES: CT scan of the brain that was done showed mild to moderate small vessel ischemic white matter demyelination, right maxillary sinus consistent with sinusitis, otherwise no acute abnormality. Chest x-ray showed no acute cardiopulmonary disease. Renal ultrasound showed a 3 cm exophytic lesion arising from the lower pole of the left kidney with some internal layering debris. Recommendations are for a followup exam in 6 months. A CTA was done that showed limited opacification of the pulmonary arteries. No large central pulmonary emboli. Lungs were clear. His CT of the abdomen did show diffuse hepatic infiltration with a small hiatal hernia. ASSESSMENT AND PLAN: This is a 72-year-old gentleman presenting with hypotension and tachycardia, with alcoholic ketoacidosis and dehydration with acute kidney injury. At this point, he has responded very well to volume resuscitation. His numbers throughout the day have continued to improve. He has maintained his blood pressure. Despite the elevated alcohol level, he denies any high alcohol consumption on the day that this occurred. As he continues to improve, we will continue hold this discussion with him. He may benefit from some counseling through our Mental Health Department. Continue supportive care for now. Further recommendations as the case develops. Tuyet Vasquez MD CAS/YESSI , 04:37 PM , 05:18 PM
[2017-06-19] MEDS: PANTOPRAZOLE SOD 40 MG DELAYED RELEASE TAB PO SCH (19:16)
--- NOTE | 2017-06-19 21:00 | EKG ---
Date Performed: 06/18/2017 Time Performed: 21:27:09 PTAGE: 72 years EKG: Sinus rhythm LOW QRS VOLTAGE IN EXTREMITY LEADS BORDERLINE ECG NO PREVIOUS TRACING DOCTOR: Gurwinder Camacho Interpretating Date/Time 06/19/2017 20:59:46
[2017-06-20] VITALS (8 sets, daily range): BP systolic 125–148; BP diastolic 65–82; PULSE 65–156; RESP 17–20; TEMP 97.3–99.3; O2SAT 96–100
[2017-06-20] MEDS: THIAMINE INJ 100 MG in SODIUM CHLORIDE 0.9% INJ 100 ML IV SCH (01:35)
[2017-06-20] MEDS: CHLORHEXIDINE GLUCONATE 2 % 1 PACK (2 CLOTHS) TOP SCH (04:00)
[2017-06-20] MEDS: LACTATED RINGER'S 1000 ML INJ 1,000 ML IV SCH ×3 (05:52→23:24)
[2017-06-20 06:46] LABS: CHLORIDE 99 MEQ/L (98-107); SODIUM (NA) 135 MEQ/L (136-145)
[2017-06-20 06:49] LABS: ALBUMIN 2.9 GM/DL (3.4-5.0); BICARBONATE 25.6 MEQ/L (21.0-32.0); CALCIUM 7.7 MG/DL (8.5-10.1); GLUCOSE,RANDOM 93 MG/DL (74-106); MAGNESIUM 1.2 MG/DL (1.5-2.5)
[2017-06-20 06:50] LABS: BLOOD UREA NITROGEN 11 MG/DL (7-18)
[2017-06-20 06:52] LABS: ALT (GPT) 59 U/L (12-78); AST (GOT) 56 U/L (15-37)
[2017-06-20 06:53] LABS: CREATININE 0.86 MG/DL (0.60-1.30); GLOMERULAR FILTRATION RATE 88 ML/MIN (>89); PHOSPHORUS 1.7 MG/DL (2.5-4.9)
[2017-06-20 06:54] LABS: TOTAL BILIRUBIN ADULT 0.8 MG/DL (0.2-1.0); TOTAL PROTEIN 5.8 GM/DL (6.4-8.2)
[2017-06-20 06:55] LABS: ALKALINE PHOSPHATASE 58 U/L (45-117)
[2017-06-20] MEDS: MULTIVITAMIN TAB PO SCH (08:46)
[2017-06-20] MEDS: PANTOPRAZOLE SOD 40 MG DELAYED RELEASE TAB PO SCH (08:46)
[2017-06-20] MEDS: SODIUM CHLORIDE 0.9% FLUSH 10 ML FLUSH IV FLUSH SCH ×2 (08:46→19:47)
[2017-06-20] MEDS: ENOXAPARIN SODIUM 40 MG/0.4 ML SYRINGE SQ SCH (10:52)
[2017-06-20] MEDS: MAGNESIUM SULFATE 1 GM PREMIX 100 ML IV SCH ×2 (10:52→11:48)
--- NOTE | 2017-06-20 11:28 | HHI.PR ---
Subjective Remarks No complaints, eating well, having bowel movements, ambulated in hallway , transient elevation of HR to 150's , he denies palpitaions or further light headedness, continues to deny more then 2 drinks a day, does admit to 3-4 day prior Objective Vitals Vital Signs Date Time Temp Pulse Resp B/P (MAP) Pulse Ox O2 Delivery O2 Flow Rate FiO2 06/20/17 09:52 156 06/20/17 08:00 98.9 97 18 134/82 (99) 97 06/20/17 04:00 97.4 70 20 125/65 (85) 96 06/20/17 00:00 99.3 80 20 125/73 (90) 96 06/19/17 20:15 97 21 06/19/17 20:00 71 06/19/17 20:00 99.0 77 20 116/74 (88) 97 06/19/17 15:50 96.9 90 20 143/75 (97) 97 06/19/17 11:50 98.0 89 20 145/77 (99) 97 06/19/17 11:39 98 21 Result Diagram: 06/19/17 0523 06/20/17 0524 Other Results Laboratory Tests Test 06/18/17 20:51 06/18/17 21:48 06/18/17 22:34 06/18/17 23:32 Red Blood Count 4.27 MIL/MM3 (4.50-5.90) Neutrophils (%) (Auto) 85.6 % (16.0-70.0) Lymphocytes # (Auto) 0.9 TH/MM3 (1.0-4.8) Activated Partial Thromboplast Time 24.0 SEC (24.3-30.1) Creatinine 1.70 MG/DL (0.60-1.30) Total Protein 8.3 GM/DL (6.4-8.2) Aspartate Amino Transf (AST/SGOT) 225 U/L (15-37) Alanine Aminotransferase (ALT/SGPT) 138 U/L (12-78) Sodium Level 135 MEQ/L (136-145) Chloride Level 96 MEQ/L (98-107) Carbon Dioxide Level 19.9 MEQ/L (21.0-32.0) Anion Gap 19 MEQ/L (5-15) Estimat Glomerular Filtration Rate 40 ML/MIN (>89) Lactic Acid Level 8.2 mmol/L (0.4-2.0) 6.3 mmol/L (0.4-2.0) Troponin I LESS THAN 0.02 NG/ML Salicylates Level 2.1 MG/DL (2.8-20.0) Ethyl Alcohol Level 156 MG/DL (0-5) Blood Gas HCO3 15 mmol/L (22-26) Blood Gas Base Excess -10.1 mmol/L (-2-2) Arterial Blood pH 7.30 (7.380-7.420) Arterial Blood Partial Pressure CO2 31 mmHG (38-42) Urine Ketones 15 mg/dL (NEG) Urine Hyaline Casts 3-5 /lpf (RARE) Test 06/19/17 05:23 06/19/17 06:30 06/19/17 06:44 06/19/17 07:10 Red Blood Count 3.55 MIL/MM3 (4.50-5.90) Hemoglobin 11.6 GM/DL (13.0-17.0) Hematocrit 35.0 % (39.0-51.0) Platelet Count 140 TH/MM3 (150-450) Neutrophils (%) (Auto) 74.8 % (16.0-70.0) Basophils (%) (Auto) 4.2 % (0.0-2.0) Lymphocytes # (Auto) 0.9 TH/MM3 (1.0-4.8) Basophils # (Auto) 0.3 TH/MM3 (0-0.2) Total Protein 6.1 GM/DL (6.4-8.2) Albumin 3.1 GM/DL (3.4-5.0) Calcium Level 7.5 MG/DL (8.5-10.1) Aspartate Amino Transf (AST/SGOT) 120 U/L (15-37) Alanine Aminotransferase (ALT/SGPT) 91 U/L (12-78) Sodium Level 135 MEQ/L (136-145) Estimat Glomerular Filtration Rate 66 ML/MIN (>89) Lactic Acid Level 2.7 mmol/L (0.4-2.0) Acetaminophen Level LESS THAN 2.0 MCG/ML B-Hydroxybutyrate 2.95 MMOL/L (0.00-0.39) Test 06/19/17 10:50 06/19/17 13:05 06/20/17 05:24 Total Protein 5.8 GM/DL (6.4-8.2) Albumin 2.9 GM/DL (3.4-5.0) Calcium Level 7.7 MG/DL (8.5-10.1) Phosphorus Level 1.7 MG/DL (2.5-4.9) Magnesium Level 1.2 MG/DL (1.5-2.5) Aspartate Amino Transf (AST/SGOT) 56 U/L (15-37) Sodium Level 135 MEQ/L (136-145) Estimat Glomerular Filtration Rate 88 ML/MIN (>89) Imaging Last Impressions Chest X-Ray 06/19/17 0600 Signed Impressions: Service Date/Time: Monday, June 19, 2017 05:59 - CONCLUSION: No acute cardiopulmonary process. No change from prior. Viet Singer MD CT Angiography 06/19/17 0001 Signed Impressions: Service Date/Time: Monday, June 19, 2017 01:52 - CONCLUSION: 1. Limited opacification of the pulmonary arterie. The contrast bolus is predominantly in the aorta. No large central pulmonary emboli. 2. Lungs are clear. 3. Small hiatal hernia. Hepatic fatty infiltration. Viet Singer MD Abdomen/Pelvis CT 06/19/17 0001 Signed Impressions: Service Date/Time: Monday, June 19, 2017 01:52 - CONCLUSION: 1. Diffuse hepatic fatty infiltration. Small hiatal hernia. 2. 1.9 cm nodule in the inferior lateral pole of left kidney cannot be characterized as a simple cyst. This could still represent hemorrhagic or proteinaceous cyst. Ultrasound could be performed for further characterization on a nonemergent basis. 3. Disease of the sigmoid without diverticulitis. Viet Singer MD Renal Ultrasound 06/19/17 0000 Signed Impressions: Service Date/Time: Monday, June 19, 2017 07:46 - CONCLUSION: A 3 cm exophytic lesion arising from the lower pole of left kidney a recent CT scan has predominantly cystic characteristics on ultrasound. There is some internal layering debris. Recommend followup exam in 6 months. Luis Mcleod MD Head CT [id number] Signed Impressions: Service Date/Time: Sunday, June 18, 2017 20:56 - CONCLUSION: 1. Senescent changes with mild to moderate small vessel ischemic white matter demyelination. 2. Right maxillary sinus fluid consistent with sinusitis. 3. No acute intracranial abnormality. Reuben Delgado MD Objective Remarks sitting by bed NAD rt eye injected more then left Lungs clear heart rrr not tachycardic good bowel sounds no edema A/P Problem List: (1) Alcoholic ketoacidosis ICD Codes: E87.2 - Acidosis Plan: improved with hydration, replace electrolytes as necessary (2) Dehydration ICD Codes: E86.0 - Dehydration Status: Acute Plan: improved with volume replacement acute renal injury resolved with renal function back to base line (3) Transaminitis ICD Codes: R74.0 - Nonspecific elevation of levels of transaminase and lactic acid dehydrogenase [LDH] Status: Acute Plan: improving , discussed continued avoidance of alcohol (4) Alcohol use disorder ICD Codes: F10.99 - Alcohol use, unspecified with unspecified alcohol-induced disorder Status: Chronic Plan: he continues to deny excessive alcohol consumption as well as counseling , he states he will decrease his use to 1 beer a day. will continue to address Tuyet Vasquez MD June 20, 2017 11:28
[2017-06-20] MEDS: POTASSIUM PHOSPHATE/SODIUM PHOSPHATE 250 MG TAB PO SCH ×2 (13:05→21:50)
[2017-06-20] MEDS: ERYTHROMYCIN 0.5% OPTH OINT 3.5 GM TUBO EACH EYE SCH (23:23)
[2017-06-21] VITALS: BP 178/88; PULSE 84; RESP 20; TEMP 99.1; O2SAT 97
[2017-06-21] MEDS: THIAMINE INJ 100 MG in SODIUM CHLORIDE 0.9% INJ 100 ML IV SCH (01:45)
[2017-06-21] MEDS: CHLORHEXIDINE GLUCONATE 2 % 1 PACK (2 CLOTHS) TOP SCH (02:39)
[2017-06-21 04:00] VITALS: BP 173/93; PULSE 94; RESP 18; TEMP 98.5; O2SAT 97
[2017-06-21] MEDS: ERYTHROMYCIN 0.5% OPTH OINT 3.5 GM TUBO EACH EYE SCH (05:05)
[2017-06-21] MEDS: POTASSIUM PHOSPHATE/SODIUM PHOSPHATE 250 MG TAB PO SCH (05:05)
[2017-06-21 05:19] LABS: CHLORIDE 100 MEQ/L (98-107); SODIUM (NA) 137 MEQ/L (136-145)
[2017-06-21 05:22] LABS: CALCIUM 8.3 MG/DL (8.5-10.1)
[2017-06-21 05:23] LABS: BICARBONATE 28.5 MEQ/L (21.0-32.0); BLOOD UREA NITROGEN 8 MG/DL (7-18); GLUCOSE,RANDOM 88 MG/DL (74-106); MAGNESIUM 1.6 MG/DL (1.5-2.5)
[2017-06-21 05:26] LABS: ALT (GPT) 68 U/L (12-78); AST (GOT) 73 U/L (15-37); CREATININE 0.79 MG/DL (0.60-1.30); GLOMERULAR FILTRATION RATE 97 ML/MIN (>89); PHOSPHORUS 2.6 MG/DL (2.5-4.9)
[2017-06-21 05:28] LABS: TOTAL BILIRUBIN ADULT 0.7 MG/DL (0.2-1.0)
[2017-06-21 05:29] LABS: ALKALINE PHOSPHATASE 59 U/L (45-117)
[2017-06-21 07:30] VITALS: PULSE 135
[2017-06-21 08:00] VITALS: BP 147/78; PULSE 90; RESP 20; TEMP 97.1; O2SAT 95
[2017-06-21] MEDS: SODIUM CHLORIDE 0.9% FLUSH 10 ML FLUSH IV FLUSH SCH (08:44)
[2017-06-21] MEDS: MULTIVITAMIN TAB PO SCH (08:44)
[2017-06-21] MEDS: PANTOPRAZOLE SOD 40 MG DELAYED RELEASE TAB PO SCH (08:44)
[2017-06-21] MEDS ORDERED: ERYTHROMYCIN 0.5% OPTH OINT 3.5 GM TUBO EACH EYE SCH (09:00)
[2017-06-21] MEDS ORDERED: ATORVASTATIN 40 MG TAB PO SCH (09:00)
[2017-06-21] MEDS ORDERED: LISINOPRIL 20 MG TAB PO SCH (09:00)
[2017-06-21] MEDS: ENOXAPARIN SODIUM 40 MG/0.4 ML SYRINGE SQ SCH (11:18)
--- NOTE | 2017-06-21 11:49 | HHI.PR ---
Subjective Remarks Feels fine, no complaints, states he will no longer consume alcohol. states only time she has seen him intoxicated recently was when they put their dog down in [place]. She had never noticed his tremors but states sons commented they had noted some. Objective Vitals Vital Signs Date Time Temp Pulse Resp B/P (MAP) Pulse Ox O2 Delivery O2 Flow Rate FiO2 06/21/17 08:00 97.1 90 20 147/78 (101) 95 06/21/17 04:00 98.5 94 18 173/93 (119) 97 06/21/17 00:00 99.1 84 20 178/88 (118) 97 06/20/17 20:00 98.4 75 20 148/75 (99) 99 06/20/17 20:00 72 06/20/17 16:00 97.3 65 18 128/79 (95) 100 06/20/17 13:46 109 06/20/17 12:00 99.2 90 17 137/80 (99) 98 06/21/17 06/21/17 06/22/17 15:00 23:00 07:00 Intake Total 120 ml Balance 120 ml Intake Oral 120 ml Result Diagram: 06/19/17 0523 06/21/17 0430 Imaging Last Impressions Chest X-Ray 06/19/17 0600 Signed Impressions: Service Date/Time: Monday, June 19, 2017 05:59 - CONCLUSION: No acute cardiopulmonary process. No change from prior. Viet Singer MD CT Angiography 06/19/17 0001 Signed Impressions: Service Date/Time: Monday, June 19, 2017 01:52 - CONCLUSION: 1. Limited opacification of the pulmonary arterie. The contrast bolus is predominantly in the aorta. No large central pulmonary emboli. 2. Lungs are clear. 3. Small hiatal hernia. Hepatic fatty infiltration. Viet Singer MD Abdomen/Pelvis CT [id number] Signed Impressions: Service Date/Time: Monday, June 19, 2017 01:52 - CONCLUSION: 1. Diffuse hepatic fatty infiltration. Small hiatal hernia. 2. 1.9 cm nodule in the inferior lateral pole of left kidney cannot be characterized as a simple cyst. This could still represent hemorrhagic or proteinaceous cyst. Ultrasound could be performed for further characterization on a nonemergent basis. 3. Disease of the sigmoid without diverticulitis. Viet Singer MD Renal Ultrasound 06/19/17 0000 Signed Impressions: Service Date/Time: Monday, June 19, 2017 07:46 - CONCLUSION: A 3 cm exophytic lesion arising from the lower pole of left kidney a recent CT scan has predominantly cystic characteristics on ultrasound. There is some internal layering debris. Recommend followup exam in 6 months. Luis Mcleod MD Head CT [id number] Signed Impressions: Service Date/Time: Sunday, June 18, 2017 20:56 - CONCLUSION: 1. Senescent changes with mild to moderate small vessel ischemic white matter demyelination. 2. Right maxillary sinus fluid consistent with sinusitis. 3. No acute intracranial abnormality. Reuben Delgado MD Objective Remarks sitting by bed visitn with NAD rt eye injected more then left Lungs clear heart rrr not tachycardic good bowel sounds no edema A/P Problem List: (1) Alcoholic ketoacidosis ICD Codes: E87.2 - Acidosis Plan: improved with hydration, electrolytes replaced (2) Dehydration ICD Codes: E86.0 - Dehydration Status: Resolved Plan: improved with volume replacement acute renal injury resolved with renal function back to base line (3) Transaminitis ICD Codes: R74.0 - Nonspecific elevation of levels of transaminase and lactic acid dehydrogenase [LDH] Status: Chronic Plan: improving , discussed continued avoidance of alcohol (4) Alcohol use disorder ICD Codes: F10.99 - Alcohol use, unspecified with unspecified alcohol-induced disorder Status: Chronic Plan: he continues to deny excessive alcohol consumption as well as counseling , today he states he will stop drinking , discussed that sometimes can be a challenging process and there are resources to help him. he declined. Let him know his PCP was available at any time he needed help. Assessment and Plan Discharge home today Tuyet Vasquez MD June 21, 2017 11:49
[2017-06-21] MEDS ORDERED: THERTAB15 PO (11:56)
[2017-06-21] MEDS ORDERED: ERYTHROMYCIN 0.5% EACH EYE (11:56)
[2017-06-21] MEDS ORDERED: OPTH EACH EYE (11:56)
[2017-06-21 12:00] VITALS: BP 163/86; PULSE 99; RESP 19; TEMP 98.7; O2SAT 98
--- NOTE | 2017-06-21 12:08 | HHI.DS ---
Discharge Summary Admission Date Jun 18, 2017 at 22:35 Admitting Diagnosis Lactic acidosis, sepsis (1) Alcoholic ketoacidosis ICD Codes: E87.2 - Acidosis Status: Resolved (2) Dehydration Diagnosis: Secondary ICD Codes: E86.0 - Dehydration Status: Resolved (3) Transaminitis Diagnosis: Secondary ICD Codes: R74.0 - Nonspecific elevation of levels of transaminase and lactic acid dehydrogenase [LDH] Status: Chronic (4) Alcohol use disorder Diagnosis: Secondary ICD Codes: F10.99 - Alcohol use, unspecified with unspecified alcohol-induced disorder Status: Chronic Consultants Critical Care Dr Ayala Brief History Pt brought to the ER for lightheadedness and falls by his family. Was hypotensive, tachycardic and had lactic acidosis elevated etoh level and ketones. Was admitted by business solutions consultant for alcoholic ketoacidosis and agressively received volume replacement overnight with electrolyte and clinically improvement. CBC/BMP: 06/19/17 0523 06/21/17 0430 Significant Findings Laboratory Tests Test 06/18/17 20:51 06/18/17 21:48 06/18/17 22:34 06/18/17 23:32 Red Blood Count 4.27 MIL/MM3 (4.50-5.90) Neutrophils (%) (Auto) 85.6 % (16.0-70.0) Lymphocytes # (Auto) 0.9 TH/MM3 (1.0-4.8) Activated Partial Thromboplast Time 24.0 SEC (24.3-30.1) Creatinine 1.70 MG/DL (0.60-1.30) Total Protein 8.3 GM/DL (6.4-8.2) Aspartate Amino Transf (AST/SGOT) 225 U/L (15-37) Alanine Aminotransferase (ALT/SGPT) 138 U/L (12-78) Sodium Level 135 MEQ/L (136-145) Chloride Level 96 MEQ/L (98-107) Carbon Dioxide Level 19.9 MEQ/L (21.0-32.0) Anion Gap 19 MEQ/L (5-15) Estimat Glomerular Filtration Rate 40 ML/MIN (>89) Lactic Acid Level 8.2 mmol/L (0.4-2.0) 6.3 mmol/L (0.4-2.0) Troponin I LESS THAN 0.02 NG/ML Salicylates Level 2.1 MG/DL (2.8-20.0) Ethyl Alcohol Level 156 MG/DL (0-5) Blood Gas HCO3 15 mmol/L (22-26) Blood Gas Base Excess -10.1 mmol/L (-2-2) Arterial Blood pH 7.30 (7.380-7.420) Arterial Blood Partial Pressure CO2 31 mmHG (38-42) Urine Ketones 15 mg/dL (NEG) Urine Hyaline Casts 3-5 /lpf (RARE) Test 06/19/17 05:23 06/19/17 06:30 06/19/17 06:44 06/19/17 07:10 Red Blood Count 3.55 MIL/MM3 (4.50-5.90) Hemoglobin 11.6 GM/DL (13.0-17.0) Hematocrit 35.0 % (39.0-51.0) Platelet Count 140 TH/MM3 (150-450) Neutrophils (%) (Auto) 74.8 % (16.0-70.0) Basophils (%) (Auto) 4.2 % (0.0-2.0) Lymphocytes # (Auto) 0.9 TH/MM3 (1.0-4.8) Basophils # (Auto) 0.3 TH/MM3 (0-0.2) Total Protein 6.1 GM/DL (6.4-8.2) Albumin 3.1 GM/DL (3.4-5.0) Calcium Level 7.5 MG/DL (8.5-10.1) Aspartate Amino Transf (AST/SGOT) 120 U/L (15-37) Alanine Aminotransferase (ALT/SGPT) 91 U/L (12-78) Sodium Level 135 MEQ/L (136-145) Estimat Glomerular Filtration Rate 66 ML/MIN (>89) Lactic Acid Level 2.7 mmol/L (0.4-2.0) Acetaminophen Level LESS THAN 2.0 MCG/ML B-Hydroxybutyrate 2.95 MMOL/L (0.00-0.39) Test 06/19/17 10:50 06/19/17 13:05 06/20/17 05:24 06/21/17 04:30 Total Protein 5.8 GM/DL (6.4-8.2) 6.0 GM/DL (6.4-8.2) Albumin 2.9 GM/DL (3.4-5.0) 3.0 GM/DL (3.4-5.0) Calcium Level 7.7 MG/DL (8.5-10.1) 8.3 MG/DL (8.5-10.1) Phosphorus Level 1.7 MG/DL (2.5-4.9) Magnesium Level 1.2 MG/DL (1.5-2.5) Aspartate Amino Transf (AST/SGOT) 56 U/L (15-37) 73 U/L (15-37) Sodium Level 135 MEQ/L (136-145) Estimat Glomerular Filtration Rate 88 ML/MIN (>89) Imaging Last Impressions Chest X-Ray 06/19/17 0600 Signed Impressions: Service Date/Time: Monday, June 19, 2017 05:59 - CONCLUSION: No acute cardiopulmonary process. No change from prior. Viet Singer MD CT Angiography 06/19/17 0001 Signed Impressions: Service Date/Time: Monday, June 19, 2017 01:52 - CONCLUSION: 1. Limited opacification of the pulmonary arterie. The contrast bolus is predominantly in the aorta. No large central pulmonary emboli. 2. Lungs are clear. 3. Small hiatal hernia. Hepatic fatty infiltration. Viet Singer MD Abdomen/Pelvis CT 06/19/17 0001 Signed Impressions: Service Date/Time: Monday, June 19, 2017 01:52 - CONCLUSION: 1. Diffuse hepatic fatty infiltration. Small hiatal hernia. 2. 1.9 cm nodule in the inferior lateral pole of left kidney cannot be characterized as a simple cyst. This could still represent hemorrhagic or proteinaceous cyst. Ultrasound could be performed for further characterization on a nonemergent basis. 3. Disease of the sigmoid without diverticulitis. Viet Singer MD Renal Ultrasound 06/19/17 0000 Signed Impressions: Service Date/Time: Monday, June 19, 2017 07:46 - CONCLUSION: A 3 cm exophytic lesion arising from the lower pole of left kidney a recent CT scan has predominantly cystic characteristics on ultrasound. There is some internal layering debris. Recommend followup exam in 6 months. Luis Mcleod MD Head CT [id number] Signed Impressions: Service Date/Time: Sunday, June 18, 2017 20:56 - CONCLUSION: 1. Senescent changes with mild to moderate small vessel ischemic white matter demyelination. 2. Right maxillary sinus fluid consistent with sinusitis. 3. No acute intracranial abnormality. Reuben Delgado MD PE at Discharge sitting by bed visitn with NAD rt eye injected more then left Lungs clear heart rrr not tachycardic good bowel sounds no edema Hospital Course Pt was stabilized by the business solutions consultant and transfered to the floor under hospitilist for [facility]. Electrolyte replacement continued as well as vitamin replacement for prolonged alcohol use. Patient would not acknowledge excessive alcohol consumption but did affirm that he would no longer consume alcohol. He did not exhibit signs of withdrawal though he did have some tremors that according to him had been present for a while. AT the time of discharge electrolytes had been replaced and his blood pressure was back up. Home medications were restarted. Pt Condition on Discharge: Fair Discharge Disposition: Discharge Home Discharge Instructions DIET: Follow Instructions for: Heart Healthy Diet Activities you can perform: Regular-No Restrictions Follow up Referrals: PCP Follow-up - 1 Week with Pepe Mann MD PhD New Medications: Multivitamin with Folic Acid (Thera Tablet) 400 Mcg Tablet 1 TAB PO DAILY for nutrition for 30 Days, #30 TAB [Erythromycin 0.5% Opth Oint] () 3.5 APPLIC/3.5 GM OINT 1 APPLIC EACH EYE Q12HR for conjunctivitis, #1 TUBE Continued Medications: Atorvastatin (Atorvastatin) 40 Mg Tab 40 MG PO DAILY for Cholesterol Management, #30 TAB 0 Refills Lisinopril (Lisinopril) 20 Mg Tab 20 MG PO DAILY, #30 TAB 0 Refills Tuyet Vasquez MD June 21, 2017 12:08
[2017-06-22] MEDS ORDERED: THIAMINE HCL 100 MG TAB PO SCH (09:00)
== END 2017-06-21 13:21 | disposition home or self-care (01) | DRG 640 ==
LOC: PHED 20:17 → PHEDA 22:35 → PHEDH 06-19 02:34 → PH3A 06-19 07:39
PROVIDERS: ADMIT Legal Medicine; ATTEND Legal Medicine
DX: E87.2 Acidosis (principal); R57.1 Hypovolemic shock; G92 Toxic encephalopathy; N17.9 Acute kidney failure, unspecified; I10 Essential (primary) hypertension; R74.0 Nonspecific elevation of levels of transaminase and lactic acid dehydrogenase [LDH]; E78.00 Pure hypercholesterolemia, unspecified; E78.5 Hyperlipidemia, unspecified; F10.129 Alcohol abuse with intoxication, unspecified; N28.1 Cyst of kidney, acquired; R25.1 Tremor, unspecified; Y90.6 Blood alcohol level of 120-199 mg/100 ml; Z87.891 Personal history of nicotine dependence
CPT/HCPCS: 36600; 70450; 71045; 71275; 74177; 76775; 80053; 80074; 80307; 81001; 82010; 82140; 82533; 82550; 82552; 82805; 83605; 83735; 84100; 84425; 84484; 85025; 85610; 85730; 87040; 87641; 93005; 96360; 96361; J1650; J2405; J2543; J3370; J3411; J3475; J7030; J7050; J7120; Q9963; Q9967